=== PATIENT | male | born 2000 | race Caucasian/White ===

== ENCOUNTER 2022-05-28 20:30 | Emergency (ER) | payer BC, OTHER ==
[2022-05-28 21:05] VITALS: TEMP 97.8; BMI 28.3
[2022-05-28 21:13] VITALS: BP 127/68; PULSE 92; RESP 16
== END 2022-05-28 21:16 | disposition home or self-care (01) ==
LOC: FER 20:30
PROC: 3E033NZ Introduction of Analgesics, Hypnotics, Sedatives into Peripheral Vein, Percutaneous Approach (ICD-10-PCS; principal; 2022-05-28)
DX: T78.40XA Allergy, unspecified, initial encounter (principal)
CPT/HCPCS: 99283-25

== ENCOUNTER 2024-01-18 17:04 | Emergency (ER) | payer BC ==
[2024-01-18 17:23] VITALS: BP 126/80; PULSE 76; RESP 16; TEMP 98.7; BMI 26.4
== END 2024-01-18 18:57 | disposition home or self-care (01) ==
LOC: FER 17:04
DX: S06.0X0A Concussion without loss of consciousness, initial encounter (principal); W22.8XXA Striking against or struck by other objects, initial encounter
CPT/HCPCS: 70450-TC; 99284-25